=== PATIENT | male | born 1960 | race Caucasian/White ===

== ENCOUNTER 2018-06-11 06:02 | Day surgery (SDC) | payer BC, OTHER | END 2018-06-11 11:06 | disposition home or self-care (01) | LOC: GIL 06:02 | DX: Z12.11 Encounter for screening for malignant neoplasm of colon (principal); D12.6 Benign neoplasm of colon, unspecified; K57.90 Diverticulosis of intestine, part unspecified, without perforation or abscess without bleeding; K64.8 Other hemorrhoids; K29.70 Gastritis, unspecified, without bleeding; I10 Essential (primary) hypertension | CPT/HCPCS: 43239; 88305 ==